=== PATIENT | male | born 1990 | race African-American/Black ===

== ENCOUNTER 2021-08-20 15:44 | Emergency (ER) | payer OTHER, SELFPAY ==
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
--- NOTE | 2021-08-20 15:48 | DI.RAD.S_ITS ---
PROCEDURE: XR KNEE LT 3V INDICATIONS: pain/injury TECHNIQUE: 3 views of the knee were acquired. COMPARISON: None. FINDINGS: Bones: No fractures or dislocations. No suspicious bony lesions. Soft tissues: No joint effusion. No suspicious soft tissue calcifications. IMPRESSION: No acute radiographic findings. If pain persists, followup imaging in 5-7 days is recommended to exclude occult fracture. Dictated by: Sanjana Diaz M.D. on 08/20/2021 at 16:13 Approved by: Sanjana Diaz M.D. on 08/20/2021 at 16:14
[2021-08-20 16:01] VITALS: BP 135/65; PULSE 64; RESP 16; TEMP 37; O2SAT 100; BMI 22.1
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
[2021-08-20 17:55] VITALS: BP 128/61; PULSE 73; RESP 18; O2SAT 100
== END 2021-08-20 17:55 | disposition home or self-care (01) ==
PROVIDERS: Emergency Provider Emergency Medicine
DX: S80.212A Abrasion, left knee, initial encounter (principal); S90.112A Contusion of left great toe without damage to nail, initial encounter; V28.0XXA Motorcycle driver injured in noncollision transport accident in nontraffic accident, initial encounter
CPT/HCPCS: 73562; 73660; 99281; 99283